=== PATIENT | female | born 1945 | race Hispanic/Latino ===

== ENCOUNTER 2018-03-02 07:45 | Outpatient (CLI) | payer MEDICARE | END 2018-03-02 07:46 | disposition home or self-care (01) | LOC: CARDIO 07:45 ==

== ENCOUNTER 2018-03-19 07:49 | Day surgery (SDC) | payer MEDICARE ==
[2018-03-09 09:11] VITALS: BMI 31.8
--- NOTE | 2018-03-17 00:10 | HP ---
DATE OF EXAM: 03/16/2018 REASON FOR ADMISSION: Left heart and right heart catheterization, possible angioplasty, shortness of breath, unstable angina. BRIEF CLINICAL HISTORY: This is a 72-year-old female with past medical history significant for hypertension, left bundle-branch block, pulmonary hypertension, atrial fibrillation, complaining of chest pain and dyspnea on exertion. So, the patient is scheduled for elective cardiac cath, possible angioplasty. The patient is also being seen by Dr. Valencia, Pulmonary and suggested right heart catheterization as well. PAST MEDICAL HISTORY: Significant for diabetes, hypertension, hyperlipidemia, atrial fibrillation. CURRENT MEDICATIONS: The patient is taking Ellipta inhaler, Lexapro 20 mg daily, Celebrex 200 mg daily, Eliquis 5 mg p.o. b.i.d., amlodipine 10 mg daily, potassium chloride 1 tablet daily, vitamin D3, ascorbic acid, vitamin C, methylprednisolone 4 mg daily. ALLERGIES: ALLERGY TO KEFLEX, ALLERGY TO LATEX. SOCIAL HISTORY: Denies smoking. Denies any history of alcohol abuse. RECENT CARDIAC WORKUP: As follows: The patient had a stress test dated 03/02/2018, that showed essentially normal myocardial perfusion study with an ejection fraction of 65%. The patient has echocardiogram on 03/02/2018, that showed trace mitral regurgitation, normal tricuspid structure, [id number] tricuspid regurgitation, RV systolic pressure 78, consistent with severe pulmonary hypertension, ejection fraction of 65%. REVIEW OF SYSTEMS: As per HPI, negative except for chest pain and shortness of breath and dyspnea on exertion. PHYSICAL EXAMINATION: As follows: GENERAL: Height of the patient is 5 feet 6 inches, weight of the patient 200 pounds, body mass index 35 kg/m2. VITAL SIGNS: Temperature afebrile, heart rate 90, blood pressure 150/70. HEENT: PERRLA. Extraocular muscles are intact. NECK: Supple. No carotid bruits or thyromegaly. CHEST: Clear to auscultation. HEART: S1 and S2, regular. ABDOMEN: Soft. EXTREMITIES: Clubbing and cyanosis, negative. IMPRESSION AND PLAN: A 72-year-old female with past medical history significant for chronic atrial fibrillation, on anticoagulation; hypertension; hyperlipidemia; chronic obstructive pulmonary disease; pulmonary hypertension. Most recent echocardiogram shows pulmonary hypertension, right ventricular systolic pressure of 78, complaining of dyspnea on exertion and chest pain on exertion, though stress test in November was negative. The patient is scheduled for elective cardiac catheterization, possible angioplasty, left and right heart catheterization, pulmonary hypertension, and medication guided for pulmonary hypertension. Risks, benefits, and alternatives were discussed with the patient. The patient agreed to proceed for left and right heart catheterization. Blood workup is pending. After blood workup found to be normal, we will load the patient with aspirin and Plavix. Further recommendations after cardiac catheterization. Thank you Dr. Ellison/Dr. Shaw/Dr. Valencia for providing us this opportunity in taking care of the patient, Shanelle Matias. Sandra Camargo MD
[2018-03-19 08:57] LABS: BASO # 0.04 K/mm3 (0.0-2.0); BASO % 0.4 % (0.0-3.0); EOS # 0.3 (0.0-0.7); EOS % 3.1 % (1.5-5.0); HEMOGLOBIN 14.3 g/dL (12.0-16.0); LYMPH # 2.2 (1.2-3.4); LYMPH % 23.4 % (22.0-35.0); MEAN CELL VOLUME 87.3 fl (80.0-105.0); MEAN CORPUSCULAR HEMOGLOBIN 29.3 pg (25.0-35.0); MEAN CORPUSCULAR HGB CONC 33.6 g/dl (31.0-37.0); MEAN PLATELET VOLUME 11.4 fl (7.0-11.0); MONO # 0.7 (0.1-0.6); MONO % 7.3 % (1.0-6.0); RBC 4.88 10^6/uL (3.5-6.1); RED CELL DISTRIBUTION WIDTH 13.8 % (11.5-14.5); WHITE BLOOD COUNT 9.2 10^3/uL (4.5-11.0)
[2018-03-19] MEDS ORDERED: Iohexol 350mgl/ml 50 ML ONE (08:58)
[2018-03-19] MEDS ORDERED: Iohexol 350 MG/100 ML VIAL ONE (08:58)
[2018-03-19] MEDS ORDERED: Lidocaine 2% Inj (20ml) ONE (08:58)
[2018-03-19 09:07] LABS: BLOOD UREA NITROGEN 22 mg/dL (7-21); CALCIUM 9.5 mg/dL (8.4-10.5); GFR NON-AFRICAN AMERICAN > 60; HDL CHOLESTEROL 67 mg/dL (29-60)
[2018-03-19 09:17] LABS: LDL CHOLESTEROL 92 mg/dL (0-129)
[2018-03-19 09:26] LABS: INR 1.19; PARTIAL THROMBOPLASTIN TIME 35.6 Seconds (26.9-38.3); PROTHROMBIN TIME 13.4 SECONDS (9.4-12.5)
[2018-03-19] MEDS ORDERED: Midazolam 2 MG/2 ML VIAL ONE (10:08)
--- NOTE | 2018-03-19 10:13 | CARD ---
APPROVED REPORT Date of service: 03/19/2018 EKG Measurement Heart [id number] <Conclusion> Atrial fibrillation Left Anterior Rigoberto=Block. Nonspecific intraventricular block Anterolateral infarct, age Old?
[2018-03-19] MEDS ORDERED: Sodium Chloride 0.9% 1,000 ML IV SCH (11:00)
[2018-03-19 11:09] VITALS: TEMP 97.9
--- NOTE | 2018-03-19 11:19 | CPOSTOP ---
DATE: 03/19/2018 CARDIOVASCULAR LAB POSTPROCEDURE NOTE PHYSICIAN: Sandra Camargo MD [employer]: [employer] roofing technician. TYPE OF ANESTHESIA: Moderate conscious sedation, total 2 mg of Versed and 100 of fentanyl given periodically. Started 1 mg of Versed and 50 of fentanyl. PRE-PROCEDURE DIAGNOSES: Pulmonary hypertension, unstable angina and chest pain. PROCEDURE PERFORMED: Complete left and right heart catheterization. FINDINGS: Normal coronaries, preserved LV function, mild pulmonary hypertension. FINAL DIAGNOSES: Mild pulmonary hypertension. POST PROCEDURE CONDITION: The patient's condition is stable. VASCULAR ACCESS SITE: Right femoral artery and right femoral vein. CLOSURE DEVICE: Angio-Seal, right femoral artery and Mynx, right femoral vein. TOTAL RADIATION DOSE: 5753.79 milligray unit. TOTAL FLUORO TIME: 2.3 minutes. Sandra Camargo MD
[2018-03-19 13:49] VITALS: RESP 18; O2SAT 96
--- NOTE | 2018-03-19 14:08 | CARD ---
APPROVED REPORT Date of service: 03/19/2018 Procedure(s) performed: Complete Heart Catheterization HISTORY The patient is a 72 year-old female with a history of : most recent EF: 65%. (EF Method: RADIONUCLIDE), diabetes mellitus with treatment , chronic lung disease, previous diagnostic cath, tobacco history() : The patient is a former smoker , hypertension , Hx of ch A fib on eliquis,Hx of pulmonary HTN.who was c/o SOB for LHC/RHC.. INDICATION The indication(s) include : chest pain, arrhythmia, dyspnea. CASE TECHNIQUE The patient was brought electively to the Cardiac Catheterization Laboratory in a fasting state and was prepped and draped in a sterile manner. The right femoral groin was infiltrated with 2% Lidocaine subcutaneous anesthesia. A sheath was inserted into the right femoral artery without difficulty. Coronary angiography was performed using coronary diagnostic catheters. The left coronary system was accessed and visualized with a Diagnostic ,5F JL 4 CATH DXT 100 CM catheter. The right coronary system was accessed and visualized with a Diagnostic ,5F JR 4 CATH DXT 100 CM catheter. The left ventricle was accessed and visualized with a 5F PIGTAIL 145 CATH DXT 110 CM catheter. Left ventricular/Aortic Valve gradient assessed on pullback. Left ventriculogram was performed in CASTANEDA projection. Closure device was deployed with a 6 Fr Angio-Seal without any complications. The patient tolerated the procedure well and there were no complications associated with the procedure. Mynx for right Femoral vein and Angio-Seal for right femoral artery. Vessel Analysis The patient's coronary anatomy is right dominant. The left main coronary artery is a medium size vessel without significant stenosis. The left main bifurcates to the left anterior descending and circumflex. The left anterior descending artery is a medium size vessel with diffuse calcification noted throughout this vessel and with significant stenosis. There is a 55% stenosis in the very distal distal segment. Diffusely diseased, but non focal non flow limiting stenosis. The first diagonal branch is a medium size vessel with intimal irregularities and without significant stenosis. The circumflex artery is a small size vessel with intimal irregularities and without significant stenosis. The first obtuse marginal branch is a small size vessel with intimal irregularities and without significant stenosis. The right coronary artery is a large size vessel without significant stenosis. The right posterior descending artery is a large size vessel with intimal irregularities and without significant stenosis. Left Ventricle The left ventricle is normal in size with normal contractility. There was no cardiomyopathy. The left ventricular ejection fraction is estimated to be 60-65%. The left ventricular end diastolic pressure is 12-14 mmHg. There was no gradient across the aortic valve upon pullback. Right Heart Cath Findings The Right Atrial Pressure is 10-11 mmHg. The Right Ventricular Pressure is 49/11 mmHg. The Pulmonary Artery Pressure is 49/14 mmHg. 25-26 The Pulmonary Catheter Wedge Pressure is 12 mmHg. PVR 3.2 Wood units. The cardiac output and index were assessed using thermo dilution. The Cardiac Output is 4.00 L/min. The Cardiac index is 1.99 L/min/m2. Conclusion Non - Obstructive CAD Limited to only distal LAD diffusely diseased 55% stenosi, non focal non flow limiting stenosis. Preserved LV Fx. EF-60-65% ( a fib), EDP- 12-14 mmof Hg. RHC: RA-10-11, RV-49/11, PA-PA-49/14 with a mean of 26, PCW-12, CO-4.0, CI-1.99, PVR-3.5 sepulveda unit. Mild to Moderate Pulmonary HTN. Recommendations Aggressive Medical TherapyCardiac Risk Reduction Program Weight Loss Reduction Program CC; Drs. Shaw/ Annie / Scot
[2018-03-19 15:19] VITALS: BP 136/61; PULSE 61
--- NOTE | 2018-03-20 01:47 | DS ---
BRIEF CLINICAL HISTORY: This is a 72-year-old female with past medical history of significant for chronic atrial fibrillation, hypertension, pulmonary hypertension, admitted for left and right heart catheterization. The patient underwent left and right heart catheterization that revealed normal coronaries, preserved LV function, mild pulmonary hypertension. The patient is currently being discharged to follow up with Dr Camargo in 2 weeks. MEDICATIONS: At time of discharge include resumption of all previous medications including Ellipta, continue ascorbic acid, continue amlodipine, continue oxycodone, continue Celebrex and continue Breo inhaler, and continue vitamin D3. ADVISED TO HOLD ELIQUIS TODAY AND TOMORROW MORNING, RESUME ELIQUIS FROM TOMORROW 6 P.M. Principal procedure done on admission includes left heart catheterization and right heart catheterization. FINAL DIAGNOSES: 1. Nonobstructive coronary artery disease. 2. Mild pulmonary hypertension. 3. History of chronic atrial fibrillation. 4. Hypertension. Sandra Camargo MD
== END 2018-03-19 16:25 | disposition home or self-care (01) ==
LOC: CATH 07:49
PROVIDERS: ATTEND Internal Medicine Cardiovascular Disease
DX: I25.110 Atherosclerotic heart disease of native coronary artery with unstable angina pectoris (principal); I27.20 Pulmonary hypertension, unspecified; I10 Essential (primary) hypertension; I48.2 Chronic atrial fibrillation; E11.9 Type 2 diabetes mellitus without complications; E78.5 Hyperlipidemia, unspecified; I44.7 Left bundle-branch block, unspecified; Z79.01 Long term (current) use of anticoagulants; Z79.899 Other long term (current) drug therapy; Z87.891 Personal history of nicotine dependence; R06.00 Dyspnea, unspecified; Z88.1 Allergy status to other antibiotic agents; Z91.040 Latex allergy status
CPT/HCPCS: 36415; 80048; 80061; 85025; 85610; 85730; 86850; 86900; 93005; 93460; 99152; C1760 ×2; C1769; C1894; C2629; J1644; J2250; J3010; J7030; Q9967

== ENCOUNTER 2018-05-01 09:24 | Outpatient (CLI) | payer MEDICARE | END 2018-05-01 09:25 | disposition home or self-care (01) | LOC: RAD 09:24 ==

== ENCOUNTER 2018-05-16 13:51 | Outpatient (CLI) | payer MEDICARE | END 2018-05-16 13:52 | disposition home or self-care (01) | LOC: RAD 13:51 | DX: M81.0 Age-related osteoporosis without current pathological fracture (principal); Z12.31 Encounter for screening mammogram for malignant neoplasm of breast ==

== ENCOUNTER 2018-06-06 13:19 | Outpatient (CLI) | payer MEDICARE | END 2018-06-06 13:20 | disposition home or self-care (01) | LOC: RAD 13:19 ==